=== PATIENT | female | born 1980 | race Caucasian/White ===

== ENCOUNTER → 2016-08-21 | Outpatient (CLI) | payer OTHER ==
--- NOTE | 2016-08-21 16:11 | MAMMOGRAPHY REPORT ---
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 TECHNIQUE: Breast tomosynthesis in addition to standard 2D mammography was performed. Current study was also evaluated with a Computer Aided Detection (CAD) system. Right CC and MLO 2-D and tomosynthe sis images were obtained. COMPARISON: Comparison is made to exams dated: 02/21/2016 ultrasound, 02/21/2016 mammogram, 6 mammogram, 07/23/2015 ultrasound, 01/19/2015 ultrasound biopsy, and 01/19/2015 mammogram - [facility]. BREAST COMPOSITION: There are scattered areas of fibroglandular density in the right breast. FINDINGS: There is an oval circumscribed 2.0 x 1.1 cm mass seen within the right upper outer quadran t at approximately 9:00. The mass appears progressively increased in size compared to prior exams in cluding the 2015 and 2014 exams. The remainder of the right breast is stable compared to prior exams , without suspicious masses, calcifications, or areas of architectural distortion noted. The 2 previ ously biopsied circumscribed benign appearing masses in the right medial breast at approximately 3:00 and right upper outer quadrant at approximately 10:00 are not significantly changed. Targeted ultrasound was performed of the increasing mammographic mass. In the right breast at 8:00, 7 cm from the nipple (previously labeled 9:00), there is an oval circumscribed hypoechoic solid mass which measures 1.3 x 0.9 x 1.4 cm. This previously measured 1.2 x 0.6 x 1.3 cm on the 02/21/2016 exa m and is therefore slightly larger in size on the current exam. Although this likely represents anot her fibroadenoma given the history of prior biopsy proven fibroadenomas, given the increasing size, i t is indeterminate and ultrasound guided biopsy is recommended for further evaluation. IMPRESSION: ACR BI-RADS CATEGORY 4A: LOW SUSPICION FOR MALIGNANCY, TARGETED ULTRASOUND ACR BI-RADS C ATEGORY 4A: LOW SUSPICION FOR MALIGNANCY Interval increase in size of circumscribed hypoechoic 1.4 cm mass in the right breast at 8:00. Altho ugh this likely represents a fibroadenoma given the history of prior biopsy-proven fibroadenomas, it is indeterminant given the increasing size and ultrasound-guided core needle biopsy is recommended fo r further evaluation. A phone call was made to the physician's office to confirm faxed results were received. The patient has been verbally notified of the results. She tentatively scheduled the biopsy before leaving the [facility]. Approximately 10% of breast cancers are not detected with mammography. A negative mammographic report should not delay biopsy if a clinically suggestive mass is present. Ale Mackey M.D. ah/:08/21/2016 14:45:25 Olive Picker: Genevieve Nuñez, [facility] letter sent: Abnormal 4/5 BI-RADS Code: ACR BI-RADS Category 4A: Low Suspicion For Malignancy Ultrasound BI-RADS: ACR BI-RADS Category 4A: Low Suspicion For Malignancy
== END | disposition home or self-care (01) ==
LOC: C.MAMM 14:03
PROVIDERS: ATTEND Obstetrics & Gynecology
DX: N63 Unspecified lump in breast (principal)

== ENCOUNTER → 2016-08-28 | Outpatient (CLI) | payer OTHER ==
--- NOTE | 2016-08-28 08:57 | Discharge Instructions ---
Discharge Instructions Procedure Procedure Date: Aug 28, 2016. Reason for visit: Right Mass. Discharge Discharge Date: Aug 28, 2016. Discharge Diagnosis: status post breast biopsy Instructions Activity Recommendations: Additional Limitations (see below) Return to School/Work: no limitations Recommended Home Diet: No Limitations Provider Instructions: ACTIVITY RECOMMENDATIONS: * No lifting, pushing, pulling or exercising the affected side for three days. RETURN TO SCHOOL/WORK: * You may return to work/school after the procedure, but do not perform any strenuous activities for 24 to 48 hours. MEDICATIONS: * Tylenol (two 325 mg) every four to six hours if needed for mild pain (if not allergic to Tylenol). DIET: * Resume previous diet. SPECIAL CARE INSTRUCTIONS: * Keep biopsy site dry for 24 hours. May shower after 24 hours, but do not soak (bathe) incision. * May remove Tegaderm (plastic patch) tomorrow AFTER showering. * Leave the steri-strips on for one week. Allow the steri-strips to fall off by themselves. If not off after one week, you may remove them. You may place a Bandaid crosswise over the strips, if desired. * Apply ice 10 minutes on and 10 minutes off as needed. * Wear a bra at bedtime to sleep more comfortably for 2-3 days. * Your referring physician should have the results after approximately 5 to 7 business days. * Call for unusual bleeding, fever, drainage, etc or if you have any questions call during normal business hours or after hours call Dr Mackey, . FOLLOW UP VISIT: Follow-up with Referring Physician as scheduled. Pio Mcintosh Recommendations: Call your doctor if: * Temperature above 101 degrees * Pain not relieved by pain medicine ordered * There is increased drainage or redness from any incision * You have any unanswered questions or concerns. Your Doctors Instructions noted above were prepared by provider Ale Mackey. Patient Signature Section: Patient Instructions Signature Page Anne Sean Patient (or Guardian) Signature/Date: I have read and understand the instructions given to me by my caregivers. Caregiver/RN/Doctor Signature/Date: The above-named patient and/or guardian has received patient instructions on this date. + Original Patient Signature Page (only) stays with chart. Please make copy for patient.
--- NOTE | 2016-08-28 13:38 | MAMMOGRAPHY REPORT ---
ULTRASOUND GUIDED BIOPSY RIGHT BREAST: 08/28/2016 CLINICAL HISTORY: Right 8:00 breast mass. PATIENT CONSENT: The procedure, risks and benefits were discussed with the patient and informed writt en consent was obtained. A timeout was performed immediately prior to the procedure. PROCEDURE DESCRIPTION: With ultrasound guidance, aseptic technique, and lidocaine as the local anesth etic (1% lidocaine to anesthetize the skin and 1% lidocaine with epinephrine to anesthetize the deepe r tissues), the mass of concern in the right 8:00 breast was sampled 3 times with a 14-gauge Achieve biopsy needle. Immediately thereafter, with ultrasound guidance, aseptic technique, and lidocaine as the local anesthetic, a metallic localizer clip was placed centrally in the mass. Direct pressure w as applied to the site immediately post procedure and hemostasis was achieved. Postprocedure unilate ral mammograms were performed to confirm placement of the clip in the expected location of the breast mass. The patient tolerated the procedure without complication. She was given wound care instructi ons. The specimens were sent to pathology for analysis. COMPARISON: Comparison is made to exams dated: 08/21/2016 ultrasound, 08/21/2016 mammogram, 02/21/2016 ultrasound, 02/21/2016 mammogram, and 07/23/2015 mammogram - [facility]. IMPRESSION: ULTRASOUND GUIDED BIOPSY Ultrasound guided core needle biopsy of the right 8:00 breast mass, with clip placement. The patient will receive pathology results from her referring provider. Ale Mackey M.D. ah/:08/28/2016 08:58:30 Attending Technologist: Michelle Ramos RT(R)([place]), [facility] Independent Crop Consultant: Josie BERNAL(R)([place]), [facility]
--- NOTE | 2016-08-28 13:39 | MAMMOGRAPHY REPORT ---
UNILATERAL RIGHT DIGITAL DIAGNOSTIC MAMMOGRAM: 08/28/2016 CLINICAL HISTORY: Status post right breast biopsy. TECHNIQUE: Postprocedural right CC and ML views were obtained. COMPARISON: Comparison is made to exams dated: 08/21/2016 mammogram, 02/21/2016 ultrasound, 6 mammogram, 07/23/2015 mammogram, and 08/21/2016 ultrasound - [facility]. BREAST COMPOSITION: There are scattered areas of fibroglandular density in the right breast. FINDINGS: A new ribbon-shaped biopsy marker clip is seen at the site of the biopsied right 8:[address] mass. No significant postbiopsy hematoma is seen. Other biopsy marker clips are seen at the site of previously biopsied masses in the right upper outer quadrant at approximately 10:00 and right 3:0 0 breast. IMPRESSION: POST PROCEDURE IMAGING FOR MARKER PLACEMENT New biopsy marker clip status post ultrasound-guided biopsy of the right 8:00 breast mass. Pathology results are pending. Approximately 10% of breast cancers are not detected with mammography. A negative mammographic report should not delay biopsy if a clinically suggestive mass is present. Ale Mackey M.D. /:08/28/2016 09:07:39 Asset Management Coordinator: Josie OGDEN)([place]), [facility] BI-RADS Code: Post Procedure Imaging For Marker Placement
== END | disposition home or self-care (01) ==
LOC: C.MAMM 08:35
PROVIDERS: ATTEND Obstetrics & Gynecology
DX: N63 Unspecified lump in breast (principal); D24.1 Benign neoplasm of right breast